=== PATIENT | male | born 1950 | race Caucasian/White ===

== ENCOUNTER → 2016-06-11 | Day surgery (SDC) | payer MEDICARE ==
[~2016-06-11] MED LIST: ASPIRIN81 M2 PO; ATENOLOL PO; MULTI VITAMIN1 EACH PO; NEURONTIN300 MG PO; NORCO 10-325 TA1 TAB PO; OMEPRAZOLE20 M1 PO
--- NOTE | ~2016-06-11 | OR ---
Unit #: [id number] #: [id number] Patient: ADRIAN BAIN [id number] [address] [address] [id number] MR#: [id number] NAME: ADRIAN BAIN. ROOM: Date of Procedure: 06/11/2016 Admission Date: 06/11/2016 Surgeon: Ken Alaniz M.D. : 1950 Attending Physician: Ken Alaniz M.D. Primary Care Physician: Phuc Somers Jr., Serjio.P.RNabil OPERATIVE REPORT PROCEDURE PERFORMED Colonoscopy with biopsy. INDICATIONS FOR PROCEDURE The patient with history of colon polyps. MEDICATIONS Monitored anesthesia. POSTOPERATIVE FINDINGS 1. Three biopsies ascending colon, 2-3 mm each, removed using biopsy forceps. 2. Polyps one in transverse colon, removed using biopsy forceps. 3. Rest of the colonic mucosa was normal. 4. Internal hemorrhoids. PLAN Follow up on the pathology report and repeat colonoscopy in 5 years. DESCRIPTION OF PROCEDURE The patient was explained of the procedure, risks, and benefits along with the risks and benefits of anesthesia. He was brought to the endoscopy room. Propofol anesthesia was given. Rectal exam was done, which was normal. Colonoscope was lubricated, passed up the rectum, advanced under direct vision all the way to the cecum. Cecum was identified by ileocecal valve and appendiceal orifice. I then started to pull the scope out carefully looking. Multiple polyps were seen as described. I retroflexed in the rectum, small hemorrhoids were seen. The scope was gently pulled out. He tolerated it well. No major complications were seen. Dictated by... Narciso Driver/smith TD: 06/12/2016 11:23 JOB #: [id number] CC: Phuc Somers Jr., PreciousPJalynRNabil Unit #: [id number] #: [id number] Patient: ADRIAN BAIN OPERATIVE REPORT Page 1 of 1 X Ken Alaniz MD PROCEDURE OPERATIVE NOTE
== END | disposition home or self-care (01) ==
LOC: COPS 07:16
PROVIDERS: Internal Medicine
PROC: 0DBL8ZX Excision of Transverse Colon, Via Natural or Artificial Opening Endoscopic, Diagnostic (ICD-10-PCS; principal; 2016-06-11 09:00)
DX: Z12.11 Encounter for screening for malignant neoplasm of colon (principal); D12.2 Benign neoplasm of ascending colon; D12.3 Benign neoplasm of transverse colon; K64.8 Other hemorrhoids; K21.9 Gastro-esophageal reflux disease without esophagitis; I10 Essential (primary) hypertension; Z79.899 Other long term (current) drug therapy; Z98.890 Other specified postprocedural states
CPT/HCPCS: 88305